=== PATIENT | male | born 1960 | race Two or more races ===

== ENCOUNTER → 2016-08-29 | Outpatient (REF) | payer BC ==
[2016-08-29 13:52] LABS: ALBUMIN 4.2 GM/DL (3.2-5.2); ALKALINE PHOSPHATASE 106 U/L (45-117); ALT/SGPT 48 U/L (12-78); ANION GAP 11 MEQ/L (8-16); AST/SGOT 20 U/L (15-37); BILIRUBIN,TOTAL 0.6 MG/DL (0.2-1.0); BLOOD UREA NITROGEN 21 MG/DL (7-18); CALCIUM LEVEL 8.7 MG/DL (8.5-10.1); CARBON DIOXIDE LEVEL 26 MEQ/L (21-32); CHLORIDE LEVEL 105 MEQ/L (98-107); CHOLESTEROL LEVEL 254 MG/DL (<200); CREATININE FOR GFR 1.11 MG/DL (0.70-1.30); GLOMERULAR FILTRATION RATE > 60.0 (>56); GLUCOSE, FASTING 183 MG/DL (70-105); POTASSIUM SERUM 4.2 MEQ/L (3.5-5.1); SODIUM LEVEL 142 MEQ/L (136-145); TRIGLYCERIDES LEVEL 213 MG/DL (<150)
[2016-08-30 14:04] LABS: HIV SCRN NEGATIVE (NEGATIVE)
[2016-08-30 14:05] LABS: HIV SCRN1 NEGATIVE (NEGATIVE)
[2016-08-30 14:06] LABS: CONTROL LINE INT CTR LINE PRESENT
== END ==
LOC: M SFHCPLAZ 10:33
PROVIDERS: ATTEND Family Medicine
DX: Z00.00 Encounter for general adult medical examination without abnormal findings (principal); E66.9 Obesity, unspecified
CPT/HCPCS: 36415; 80053; 80061; 83036; 86780; 87491; 87591; 87806; G0472

== ENCOUNTER 2016-09-13 03:00 | Emergency (ER) | payer BC ==
--- NOTE | 2016-09-13 04:28 | EDDOCDS ---
Nurse's Notes [facility] Name: Abdias Marina Age: 56 yrs Sex: Male : 1960 Arrival Date: 09/13/2016 Time: 03:00 Bed 12 Private MD: Diagnosis: Abrasion of other part of head Presentation: 09/13 03:07 Presenting complaint: Patient states: bump to chin, mole fell off tonight while washing af2 face. bleeding has gone through 3 rags. Adult Sepsis Screening: The patient does not have new or worsening altered mentation. Patient's respiratory rate is less than 22. Systolic blood pressure is greater than 100. Patient has a qSOFA score of 0- Negative Sepsis Screen. Suicide/Homicide risk assessment- the patient denies having any suicidal and/or homicidal ideations and does not present with any other emotional, behavioral or mental health complaints. Status: Patient is not a service associate or dependent. Transition of care: patient was not received from another setting of care. 03:07 Acuity: ANABELLA Level 4 af2 03:07 Method Of Arrival: Walkin/Carried/Asstd af2 Triage Assessment: 03:09 General: Appears in no apparent distress, Behavior is appropriate for age. Pain: Denies af2 pain. Pt Declines HIV testing. Derm: bleeding to chin controlled with rag. Historical: - Allergies: No known drug Allergies; - Home Meds: 1. lisinopril 5 mg Oral tab once daily - PMHx: Hypertension; - PSHx: achilles tendon; - Social history: Smoking status: Patient states was never smoker of tobacco. No barriers to communication noted, The patient speaks fluent Hungarian. - Family history: Not pertinent. - : The pt / caregiver states he / she is not on anticoagulants. Home medication list is obtained from the patient. - Exposure Risk Screening:: None identified. Screenin:14 Screening information is obtained from the patient. Fall risk: No risks identified. kas2 Assistance ADL's: requires no assistance with activities of daily living. Abuse/DV Screen: The patient / caregiver reports he/she is: not in a situation that causes fear, pain or injury. Nutritional screening: No deficits noted. Advance Directives: Currently, there is no health care proxy. There is no active DNR order. There is no living will. There is no Power of Brickm[employer] Helper. home support is adequate. Assessment: 03:13 General: Appears in no apparent distress, comfortable, well nourished, well groomed, kas2 Behavior is appropriate for age, cooperative. Pain: Denies pain. Neurological: Level of Consciousness is awake, alert, Oriented to person, place, time. Cardiovascular: Rhythm is regular. Respiratory: Airway is patent Respiratory effort is even, unlabored, Respiratory pattern is regular, symmetrical. Derm: Skin is intact, Skin is dry, Skin is pink, warm & dry. Skin temperature is warm. Vital Signs: 03:06 BP 177 / 90 RA Sitting (auto/); Pulse 75; Resp 18 S; Temp 97.3(TE); Pulse Ox 97% on af2 R/A; Weight 108.86 kg (R); Height 6 ft. 0 in. (182.88 cm) (R); Pain 0/10; 04:27 BP 165 / 85; Pulse 72; Resp 18; Temp 98.0(O); Pulse Ox 99% on R/A; Pain 0/10; kas2 03:06 Body Mass Index 32.55 (108.86 kg, 182.88 cm) af2 Vitals: 03:06 Log In Time: September 13, 2016 at 03:03. af2 ED Course: 03:01 Patient visited by Mercedes Lerner Reg. hs2 03:01 Patient moved to Waiting hs2 03:04 Patient moved to Triage 1 af2 03:08 Triage Initiated af2 03:09 Patient visited by Sunshine Uribe RN. af2 03:09 Osiris Coleman RN is Primary Nurse. af2 03:09 Patient moved to 12 af2 03:10 Jason Alberts MD is Attending Physician. br1 03:12 Patient visited by Osiris Coleman RN. kas2 03:19 Patient visited by Jason Alberts MD. br1 03:50 Patient visited by Osiris Coleman RN. kas2 04:10 Patient visited by Jason Alberts MD. br1 04:27 The patient / caregiver is instructed regarding the plan of care and ED course. kas2 04:27 No IV's were initiated during this patient's visit. No procedures done that require kas2 assistance. 04:28 Patient visited by Osiris Coleman RN. kas2 Order Results: There are currently no results for this order. Outcome: 04:12 Discharge ordered by Provider. br1 04:27 Discharge Assessment: patient administered narcotics - no. The following High Risk [facility] Discharge criteria are identified: None. Discharged to home ambulatory, with significant other. Condition: good Condition: stable Condition: improved. No special radiology studies were completed. Property :Personal belongings accompany Pt. 04:28 Patient left the ED. [facility] Signatures: Jason Alberts MD MD br1 Sunshine Uribe RN RN af2 Mercedes Lerner, Reg Reg hs2 Osiris Coleman RN RN kas2 MTDD
--- NOTE | 2016-09-13 04:28 | EDDOCDS ---
Physician Documentation [facility] Name: Abdias Marina Age: 56 yrs Sex: Male : 1960 Arrival Date: 09/13/2016 Time: 03:00 Bed 12 Private MD: Disposition: 09/13/16 04:12 Discharged to Home/Self Care. Impression: Abrasion of other part of head. - Condition is Stable. - Discharge Instructions: Abrasion. - Medication Reconciliation, Local Pharmacy Hours form. - Follow up: Private Physician; When: 1 - 2 days; Reason: Recheck today's complaints. - Problem is new. - Symptoms are resolved. - Notes: You were seen in the ED for an area of persistent bleeding to the chin, which has now resolved with Gelfoam and pressure to the site. Avoid any further irritation to the site. Call your primary doctor to discuss the ED visit and arrange to be seen for follow-up. Return to the ED for any dizziness, lightheadedness, bleeding that does not resolve with pressure or any other concerns. Historical: - Allergies: No known drug Allergies; - Home Meds: 1. lisinopril 5 mg Oral tab once daily - PMHx: Hypertension; - PSHx: achilles tendon; - Social history: Smoking status: Patient states was never smoker of tobacco. No barriers to communication noted, The patient speaks fluent Guatemalan. - Family history: Not pertinent. - : The pt / caregiver states he / she is not on anticoagulants. Home medication list is obtained from the patient. - Exposure Risk Screening:: None identified. Vital Signs: 09/13 03:06 BP 177 / 90 RA Sitting (auto/); Pulse 75; Resp 18 S; Temp 97.3(TE); Pulse Ox 97% on af2 R/A; Weight 108.86 kg / 240 lbs (R); Height 6 ft. 0 in. (182.88 cm) (R); Pain 0/10; 04:27 BP 165 / 85; Pulse 72; Resp 18; Temp 98.0(O); Pulse Ox 99% on R/A; Pain 0/10; kas2 03:06 Body Mass Index 32.55 (108.86 kg, 182.88 cm) af2 MDM: 03:26 Misc. Nursing Order ordered. br1 Signatures: Jason Alberts MD MD br1 Sunshine Uribe,RN RN af2 Osiris Coleman,RN RN kas2 MTDD
--- NOTE | 2016-09-15 05:29 | EDDOCDS ---
[facility]ation [facility] Name: Abdias Marina Age: 56 yrs Sex: Male : 1960 Arrival Date: 09/13/2016 Time: 03:00 Bed 12 Private MD: Disposition: 09/13/16 04:12 Discharged to Home/Self Care. Impression: Abrasion of other part of head. - Condition is Stable. - Discharge Instructions: Abrasion. - Medication Reconciliation, Local Pharmacy Hours form. - Follow up: Private Physician; When: 1 - 2 days; Reason: Recheck today's complaints. - Problem is new. - Symptoms are resolved. - Notes: You were seen in the ED for an area of persistent bleeding to the chin, which has now resolved with Gelfoam and pressure to the site. Avoid any further irritation to the site. Call your primary doctor to discuss the ED visit and arrange to be seen for follow-up. Return to the ED for any dizziness, lightheadedness, bleeding that does not resolve with pressure or any other concerns. Historical: - Allergies: No known drug Allergies; - Home Meds: 1. lisinopril 5 mg Oral tab once daily - PMHx: Hypertension; - PSHx: achilles tendon; - Social history: Smoking status: Patient states was never smoker of tobacco. No barriers to communication noted, The patient speaks fluent Vincentian. - Family history: Not pertinent. - : The pt / caregiver states he / she is not on anticoagulants. Home medication list is obtained from the patient. - Exposure Risk Screening:: None identified. Vital Signs: 09/13 03:06 BP 177 / 90 RA Sitting (auto/); Pulse 75; Resp 18 S; Temp 97.3(TE); Pulse Ox 97% on af2 R/A; Weight 108.86 kg / 240 lbs (R); Height 6 ft. 0 in. (182.88 cm) (R); Pain 0/10; 04:27 BP 165 / 85; Pulse 72; Resp 18; Temp 98.0(O); Pulse Ox 99% on R/A; Pain 0/10; kas2 03:06 Body Mass Index 32.55 (108.86 kg, 182.88 cm) af2 MDM: 03:26 Misc. Nursing Order ordered. br1 05:02 [facility] Payment Agreement was scanned into [employer] and attached to record. hs2 Signatures: Jason Alberts MD MD br1 Sunshine Uribe RN RN af2 Mercedes Lerner, Mark Flores hs2 Osiris Coleman RN RN kas2 The chart was reviewed and I authenticate all verbal orders and agree with the evaluation and treatment provided.Attachments: 05:02 [facility] Payment Agreement hs2 Chart Complete MTDD
--- NOTE | 2016-09-15 05:29 | EDDOCDS ---
Physician Documentation [facility] Name: Abdias Marina Age: 56 yrs Sex: Male : 1960 Arrival Date: 09/13/2016 Time: 03:00 Bed 12 Private MD: Disposition: 09/13/16 04:12 Discharged to Home/Self Care. Impression: Abrasion of other part of head. - Condition is Stable. - Discharge Instructions: Abrasion. - Medication Reconciliation, Local Pharmacy Hours form. - Follow up: Private Physician; When: 1 - 2 days; Reason: Recheck today's complaints. - Problem is new. - Symptoms are resolved. - Notes: You were seen in the ED for an area of persistent bleeding to the chin, which has now resolved with Gelfoam and pressure to the site. Avoid any further irritation to the site. Call your primary doctor to discuss the ED visit and arrange to be seen for follow-up. Return to the ED for any dizziness, lightheadedness, bleeding that does not resolve with pressure or any other concerns. Historical: - Allergies: No known drug Allergies; - Home Meds: 1. lisinopril 5 mg Oral tab once daily - PMHx: Hypertension; - PSHx: achilles tendon; - Social history: Smoking status: Patient states was never smoker of tobacco. No barriers to communication noted, The patient speaks fluent Moldovan. - Family history: Not pertinent. - : The pt / caregiver states he / she is not on anticoagulants. Home medication list is obtained from the patient. - Exposure Risk Screening:: None identified. Vital Signs: 09/13 03:06 BP 177 / 90 RA Sitting (auto/); Pulse 75; Resp 18 S; Temp 97.3(TE); Pulse Ox 97% on af2 R/A; Weight 108.86 kg / 240 lbs (R); Height 6 ft. 0 in. (182.88 cm) (R); Pain 0/10; 04:27 BP 165 / 85; Pulse 72; Resp 18; Temp 98.0(O); Pulse Ox 99% on R/A; Pain 0/10; kas2 03:06 Body Mass Index 32.55 (108.86 kg, 182.88 cm) af2 MDM: 03:26 Misc. Nursing Order ordered. br1 05:02 [facility] Payment Agreement was scanned into [employer] and attached to record. hs2 Signatures: Jason Alberts MD MD br1 Sunshine Uribe RN RN af2 Mercedes Lerner, Mark Flores hs2 Osiris Coleman RN RN kas2 The chart was reviewed and I authenticate all verbal orders and agree with the evaluation and treatment provided.Attachments: 05:02 [facility] Payment Agreement hs2 Chart Complete MTDD
--- NOTE | 2016-09-15 05:29 | EDDOCDS ---
Nurse's Notes [facility] Name: Abdias Marina Age: 56 yrs Sex: Male : 1960 Arrival Date: 09/13/2016 Time: 03:00 Bed 12 Private MD: Diagnosis: Abrasion of other part of head Presentation: 09/13 03:07 Presenting complaint: Patient states: bump to chin, mole fell off tonight while washing af2 face. bleeding has gone through 3 rags. Adult Sepsis Screening: The patient does not have new or worsening altered mentation. Patient's respiratory rate is less than 22. Systolic blood pressure is greater than 100. Patient has a qSOFA score of 0- Negative Sepsis Screen. Suicide/Homicide risk assessment- the patient denies having any suicidal and/or homicidal ideations and does not present with any other emotional, behavioral or mental health complaints. Status: Patient is not a home service consultant or dependent. Transition of care: patient was not received from another setting of care. 03:07 Acuity: ANABELLA Level 4 af2 03:07 Method Of Arrival: Walkin/Carried/Asstd af2 Triage Assessment: 03:09 General: Appears in no apparent distress, Behavior is appropriate for age. Pain: Denies af2 pain. Pt Declines HIV testing. Derm: bleeding to chin controlled with rag. Historical: - Allergies: No known drug Allergies; - Home Meds: 1. lisinopril 5 mg Oral tab once daily - PMHx: Hypertension; - PSHx: achilles tendon; - Social history: Smoking status: Patient states was never smoker of tobacco. No barriers to communication noted, The patient speaks fluent Vietnamese. - Family history: Not pertinent. - : The pt / caregiver states he / she is not on anticoagulants. Home medication list is obtained from the patient. - Exposure Risk Screening:: None identified. Screenin:14 Screening information is obtained from the patient. Fall risk: No risks identified. kas2 Assistance ADL's: requires no assistance with activities of daily living. Abuse/DV Screen: The patient / caregiver reports he/she is: not in a situation that causes fear, pain or injury. Nutritional screening: No deficits noted. Advance Directives: Currently, there is no health care proxy. There is no active DNR order. There is no living will. There is no Power of Assistant Director Of Admissions. home support is adequate. Assessment: 03:13 General: Appears in no apparent distress, comfortable, well nourished, well groomed, kas2 Behavior is appropriate for age, cooperative. Pain: Denies pain. Neurological: Level of Consciousness is awake, alert, Oriented to person, place, time. Cardiovascular: Rhythm is regular. Respiratory: Airway is patent Respiratory effort is even, unlabored, Respiratory pattern is regular, symmetrical. Derm: Skin is intact, Skin is dry, Skin is pink, warm & dry. Skin temperature is warm. Vital Signs: 03:06 BP 177 / 90 RA Sitting (auto/); Pulse 75; Resp 18 S; Temp 97.3(TE); Pulse Ox 97% on af2 R/A; Weight 108.86 kg (R); Height 6 ft. 0 in. (182.88 cm) (R); Pain 0/10; 04:27 BP 165 / 85; Pulse 72; Resp 18; Temp 98.0(O); Pulse Ox 99% on R/A; Pain 0/10; kas2 03:06 Body Mass Index 32.55 (108.86 kg, 182.88 cm) af2 Vitals: 03:06 Log In Time: September 13, 2016 at 03:03. af2 ED Course: 03:01 Patient visited by Mercedes Lerner Reg. hs2 03:01 Patient moved to Waiting hs2 03:04 Patient moved to Triage 1 af2 03:08 Triage Initiated af2 03:09 Patient visited by Sunshine Uribe RN. af2 03:09 Osiris Coleman RN is Primary Nurse. af2 03:09 Patient moved to 12 af2 03:10 Jason Alberts MD is Attending Physician. br1 03:12 Patient visited by Osiris Coleman RN. kas2 03:19 Patient visited by Jason Alberts MD. br1 03:50 Patient visited by Osiris Coleman RN. kas2 04:10 Patient visited by Jason Alberts MD. br1 04:27 The patient / caregiver is instructed regarding the plan of care and ED course. kas2 04:27 No IV's were initiated during this patient's visit. No procedures done that require [facility]2 assistance. 04:28 Patient visited by Osiris Coleman RN. kas2 05:02 [facility] Payment Agreement was scanned into [employer] and attached to record. hs2 Order Results: There are currently no results for this order. Outcome: 04:12 Discharge ordered by Provider. br1 04:27 Discharge Assessment: patient administered narcotics - no. The following High Risk [facility]2 Discharge criteria are identified: None. Discharged to home ambulatory, with significant other. Condition: good Condition: stable Condition: improved. No special radiology studies were completed. Property :Personal belongings accompany Pt. 04:28 Patient left the ED. [facility] Signatures: Jason Alberts MD MD br1 Sunshine Uribe,RN RN af2 Mercedes Lerner, Reg Reg hs2 Osiris ColemanRN RN kas2 Chart Complete MTDD
--- NOTE | 2016-09-15 08:19 | EDDOCDS ---
Nurse's Notes [facility] Name: Abdias Marina Age: 56 yrs Sex: Male : 1960 Arrival Date: 09/13/2016 Time: 03:00 Bed 12 Private MD: Diagnosis: Abrasion of other part of head Presentation: 09/13 03:07 Presenting complaint: Patient states: bump to chin, mole fell off tonight while washing af2 face. bleeding has gone through 3 rags. Adult Sepsis Screening: The patient does not have new or worsening altered mentation. Patient's respiratory rate is less than 22. Systolic blood pressure is greater than 100. Patient has a qSOFA score of 0- Negative Sepsis Screen. Suicide/Homicide risk assessment- the patient denies having any suicidal and/or homicidal ideations and does not present with any other emotional, behavioral or mental health complaints. Status: Patient is not a field service technician or dependent. Transition of care: patient was not received from another setting of care. 03:07 Acuity: ANABELLA Level 4 af2 03:07 Method Of Arrival: Walkin/Carried/Asstd af2 Triage Assessment: 03:09 General: Appears in no apparent distress, Behavior is appropriate for age. Pain: Denies af2 pain. Pt Declines HIV testing. Derm: bleeding to chin controlled with rag. Historical: - Allergies: No known drug Allergies; - Home Meds: 1. lisinopril 5 mg Oral tab once daily - PMHx: Hypertension; - PSHx: achilles tendon; - Social history: Smoking status: Patient states was never smoker of tobacco. No barriers to communication noted, The patient speaks fluent Danish. - Family history: Not pertinent. - : The pt / caregiver states he / she is not on anticoagulants. Home medication list is obtained from the patient. - Exposure Risk Screening:: None identified. Screenin:14 Screening information is obtained from the patient. Fall risk: No risks identified. kas2 Assistance ADL's: requires no assistance with activities of daily living. Abuse/DV Screen: The patient / caregiver reports he/she is: not in a situation that causes fear, pain or injury. Nutritional screening: No deficits noted. Advance Directives: Currently, there is no health care proxy. There is no active DNR order. There is no living will. There is no Power of Data Processor. home support is adequate. Assessment: 03:13 General: Appears in no apparent distress, comfortable, well nourished, well groomed, kas2 Behavior is appropriate for age, cooperative. Pain: Denies pain. Neurological: Level of Consciousness is awake, alert, Oriented to person, place, time. Cardiovascular: Rhythm is regular. Respiratory: Airway is patent Respiratory effort is even, unlabored, Respiratory pattern is regular, symmetrical. Derm: Skin is intact, Skin is dry, Skin is pink, warm & dry. Skin temperature is warm. Vital Signs: 03:06 BP 177 / 90 RA Sitting (auto/); Pulse 75; Resp 18 S; Temp 97.3(TE); Pulse Ox 97% on af2 R/A; Weight 108.86 kg (R); Height 6 ft. 0 in. (182.88 cm) (R); Pain 0/10; 04:27 BP 165 / 85; Pulse 72; Resp 18; Temp 98.0(O); Pulse Ox 99% on R/A; Pain 0/10; kas2 03:06 Body Mass Index 32.55 (108.86 kg, 182.88 cm) af2 Vitals: 03:06 Log In Time: September 13, 2016 at 03:03. af2 ED Course: 03:01 Patient visited by Mercedes Lerner Reg. hs2 03:01 Patient moved to Waiting hs2 03:04 Patient moved to Triage 1 af2 03:08 Triage Initiated af2 03:09 Patient visited by Sunshine Uribe RN. af2 03:09 Osiris Coleman RN is Primary Nurse. af2 03:09 Patient moved to 12 af2 03:10 Jason Alberts MD is Attending Physician. br1 03:12 Patient visited by Osiris Coleman RN. kas2 03:19 Patient visited by Jason Alberts MD. br1 03:50 Patient visited by Osiris Coleman RN. kas2 04:10 Patient visited by Jason Alberts MD. br1 04:27 The patient / caregiver is instructed regarding the plan of care and ED course. kas2 04:27 No IV's were initiated during this patient's visit. No procedures done that require [facility]2 assistance. 04:28 Patient visited by Osiris Coleman RN. kas2 05:02 [facility] Payment Agreement was scanned into [employer] and attached to record. hs2 Order Results: There are currently no results for this order. Outcome: 04:12 Discharge ordered by Provider. br1 04:27 Discharge Assessment: patient administered narcotics - no. The following High Risk [facility]2 Discharge criteria are identified: None. Discharged to home ambulatory, with significant other. Condition: good Condition: stable Condition: improved. No special radiology studies were completed. Property :Personal belongings accompany Pt. 04:28 Patient left the ED. [facility] Signatures: Jason Alberts MD MD br1 Sunshine Uribe,RN RN af2 Mercedes Lerner, Reg Reg hs2 Osiris ColemanRN RN kas2 Chart Complete MTDD
--- NOTE | 2016-09-15 08:19 | EDDOCDS ---
Physician Documentation [facility] Name: Abdias Marina Age: 56 yrs Sex: Male : 1960 Arrival Date: 09/13/2016 Time: 03:00 Bed 12 Private MD: Disposition: 09/13/16 04:12 Discharged to Home/Self Care. Impression: Abrasion of other part of head. - Condition is Stable. - Discharge Instructions: Abrasion. - Medication Reconciliation, Local Pharmacy Hours form. - Follow up: Private Physician; When: 1 - 2 days; Reason: Recheck today's complaints. - Problem is new. - Symptoms are resolved. - Notes: You were seen in the ED for an area of persistent bleeding to the chin, which has now resolved with Gelfoam and pressure to the site. Avoid any further irritation to the site. Call your primary doctor to discuss the ED visit and arrange to be seen for follow-up. Return to the ED for any dizziness, lightheadedness, bleeding that does not resolve with pressure or any other concerns. Historical: - Allergies: No known drug Allergies; - Home Meds: 1. lisinopril 5 mg Oral tab once daily - PMHx: Hypertension; - PSHx: achilles tendon; - Social history: Smoking status: Patient states was never smoker of tobacco. No barriers to communication noted, The patient speaks fluent Lebanese. - Family history: Not pertinent. - : The pt / caregiver states he / she is not on anticoagulants. Home medication list is obtained from the patient. - Exposure Risk Screening:: None identified. Vital Signs: 09/13 03:06 BP 177 / 90 RA Sitting (auto/); Pulse 75; Resp 18 S; Temp 97.3(TE); Pulse Ox 97% on af2 R/A; Weight 108.86 kg / 240 lbs (R); Height 6 ft. 0 in. (182.88 cm) (R); Pain 0/10; 04:27 BP 165 / 85; Pulse 72; Resp 18; Temp 98.0(O); Pulse Ox 99% on R/A; Pain 0/10; kas2 03:06 Body Mass Index 32.55 (108.86 kg, 182.88 cm) af2 MDM: 03:26 Misc. Nursing Order ordered. br1 05:02 [facility] Payment Agreement was scanned into [employer] and attached to record. hs2 Signatures: Jason Alberts MD MD br1 Sunshine Uribe RN RN af2 Mercedes Lerner, Mark Flores hs2 Osiris Coleman RN RN kas2 The chart was reviewed and I authenticate all verbal orders and agree with the evaluation and treatment provided.Attachments: 05:02 [facility] Payment Agreement hs2 Chart Complete MTDD
--- NOTE | 2016-09-15 08:19 | EDDOCDS ---
Physician Documentation [facility] Name: Abdias Marina Age: 56 yrs Sex: Male : 1960 Arrival Date: 09/13/2016 Time: 03:00 Bed 12 Private MD: Disposition: 09/13/16 04:12 Discharged to Home/Self Care. Impression: Abrasion of other part of head. - Condition is Stable. - Discharge Instructions: Abrasion. - Medication Reconciliation, Local Pharmacy Hours form. - Follow up: Private Physician; When: 1 - 2 days; Reason: Recheck today's complaints. - Problem is new. - Symptoms are resolved. - Notes: You were seen in the ED for an area of persistent bleeding to the chin, which has now resolved with Gelfoam and pressure to the site. Avoid any further irritation to the site. Call your primary doctor to discuss the ED visit and arrange to be seen for follow-up. Return to the ED for any dizziness, lightheadedness, bleeding that does not resolve with pressure or any other concerns. Historical: - Allergies: No known drug Allergies; - Home Meds: 1. lisinopril 5 mg Oral tab once daily - PMHx: Hypertension; - PSHx: achilles tendon; - Social history: Smoking status: Patient states was never smoker of tobacco. No barriers to communication noted, The patient speaks fluent Brazilian. - Family history: Not pertinent. - : The pt / caregiver states he / she is not on anticoagulants. Home medication list is obtained from the patient. - Exposure Risk Screening:: None identified. Vital Signs: 09/13 03:06 BP 177 / 90 RA Sitting (auto/); Pulse 75; Resp 18 S; Temp 97.3(TE); Pulse Ox 97% on af2 R/A; Weight 108.86 kg / 240 lbs (R); Height 6 ft. 0 in. (182.88 cm) (R); Pain 0/10; 04:27 BP 165 / 85; Pulse 72; Resp 18; Temp 98.0(O); Pulse Ox 99% on R/A; Pain 0/10; kas2 03:06 Body Mass Index 32.55 (108.86 kg, 182.88 cm) af2 MDM: 03:26 Misc. Nursing Order ordered. br1 05:02 [facility] Payment Agreement was scanned into [employer] and attached to record. hs2 Signatures: Jason Alberts MD MD br1 Sunshine Uribe RN RN af2 Mercedes Lerner, Mark Flores hs2 Osiris Coleman RN RN kas2 The chart was reviewed and I authenticate all verbal orders and agree with the evaluation and treatment provided.Attachments: 05:02 [facility] Payment Agreement hs2 Chart Complete MTDD
== END 2016-09-13 04:28 | disposition home or self-care (01) ==
LOC: M ED 03:00
DX: S00.81XA Abrasion of other part of head, initial encounter (principal); X58.XXXA Exposure to other specified factors, initial encounter; Y92.89 Other specified places as the place of occurrence of the external cause; Y93.89 Activity, other specified; Y99.8 Other external cause status; I10 Essential (primary) hypertension; Z79.899 Other long term (current) drug therapy

== ENCOUNTER → 2016-10-05 | Outpatient (CLI) | payer BC ==
[~2016-10-05] VITALS: Ht 182.9 cm; Wt 113.4 kg
[~2016-10-05] MED LIST: LIDOCAINE 2% INJ 100 MG/5 ML SDV (FOR ANES.) As Ordered ONE; LISI10TA4 PO; NS 1,000 ML IV SCH; PROPOFOL 200 MG/20 ML VIAL As Ordered ONE; TERB250T57 PO
--- NOTE | 2016-10-05 09:58 | ROOR ---
Patient Name: Abdias Marina Procedure Date: 10/05/2016 9:41 AM Date of : 1960 Age: 56 Room: [facility] Gender: Male Note Status: Finalized Procedure: Colonoscopy Indications: Screening for colorectal malignant neoplasm Providers: Stoney JERNIGAN MD Referring MD: Rell Koenig MD Requesting Provider: Medicines: Monitored Anesthesia Care Complications: No immediate complications. Procedure: Pre-Anesthesia Assessment: - The heart rate, respiratory rate, oxygen saturations, blood pressure, adequacy of pulmonary ventilation, and response to care were monitored throughout the procedure. The Colonoscope was introduced through the anus and advanced to the cecum, identified by appendiceal orifice and ileocecal valve. The colonoscopy was performed without difficulty. The patient tolerated the procedure well. The quality of the bowel preparation was good. Findings: The perianal and digital rectal examinations were normal. A diminutive polyp was found in the proximal ascending colon. The polyp was sessile. The polyp was removed with a jumbo cold forceps. Resection and retrieval were complete. The exam was otherwise without abnormality on direct and retroflexion views. (Exam: Complete, Prep: Good or Excellent.) Impression: - One diminutive polyp in the proximal ascending colon, removed with a jumbo cold forceps. Resected and retrieved. - The examination was otherwise normal on direct and retroflexion views. Recommendation: - Await pathology results. - Telephone endoscopist for pathology results in 2 weeks. - If the pathology report reveals adenomatous tissue, then repeat the colonoscopy for surveillance in 5 years. - If the pathology report indicates hyperplastic polyp, then repeat colonoscopy for screening purposes in 10 years. Stoney Jernigan MD Stoney JERNIGAN MD 10/05/2016 9:58:20 AM This report has been signed electronically. Number of Addenda: 0 Note Initiated On: 10/05/2016 9:41 AM Estimated Blood Loss: Estimated blood loss: none.
[2016-10-05 10:40] VITALS: BP 142/83
== END | disposition home or self-care (01) ==
LOC: M OPP 08:44
PROVIDERS: ATTEND Internal Medicine Gastroenterology
DX: Z12.11 Encounter for screening for malignant neoplasm of colon (principal); D12.2 Benign neoplasm of ascending colon; I10 Essential (primary) hypertension; E11.9 Type 2 diabetes mellitus without complications; R06.83 Snoring; Z79.899 Other long term (current) drug therapy; Z79.84 Long term (current) use of oral hypoglycemic drugs

== ENCOUNTER → 2017-01-26 | Outpatient (REF) | payer BC ==
[~2017-01-26] MED LIST changes: -LIDOCAINE 2% INJ 100 MG/5 ML SDV (FOR ANES.) As Ordered ONE; -NS 1,000 ML IV SCH; -PROPOFOL 200 MG/20 ML VIAL As Ordered ONE; +TERB250T12 PO; -TERB250T57 PO
== END ==
LOC: M SFHCPLAZ 07:55
PROVIDERS: ATTEND Family Medicine
DX: E11.9 Type 2 diabetes mellitus without complications (principal); E78.2 Mixed hyperlipidemia; R35.1 Nocturia; R68.82 Decreased libido
CPT/HCPCS: 36415; 80061; 83036; 84402; 84403; G0103

== ENCOUNTER → 2017-08-14 | Outpatient (CLI) | payer BC | LOC: M RAD 17:32 | DX: R06.02 Shortness of breath (principal) | CPT/HCPCS: 71046 ==

== ENCOUNTER → 2017-08-14 | Outpatient (REF) | payer BC | LOC: M SFHCPLAZ 17:31 | DX: R05 Cough (principal) | CPT/HCPCS: 87633 ==

== ENCOUNTER → 2018-06-07 | Outpatient (REF) | payer BC ==
[2018-06-07 11:10] LABS: ESTIMATED AVERAGE GLUCOSE 301 MG/DL (60-110); HEMOGLOBIN A1c 12.1 %
[2018-06-07 11:16] LABS: ANION GAP 10 MEQ/L (8-16); BLOOD UREA NITROGEN 15 MG/DL (7-18); CALCIUM LEVEL 8.4 MG/DL (8.5-10.1); CARBON DIOXIDE LEVEL 27 MEQ/L (21-32); CHLORIDE LEVEL 102 MEQ/L (98-107); CHOLESTEROL LEVEL 261 MG/DL (<200); CHOLESTEROL RISK RATIO 5.553 (<5); CREATININE FOR GFR 1.02 MG/DL (0.70-1.30); FREE T4 1.05 NG/DL (0.76-1.46); GLOMERULAR FILTRATION RATE > 60.0 (>56); GLUCOSE, FASTING 353 MG/DL (70-100); HDL CHOLESTEROL 47 MG/DL (>40); LDL CHOLESTEROL 162 MG/DL (<100); NON-HDL-C 214 MG/DL; POTASSIUM SERUM 3.8 MEQ/L (3.5-5.1); SODIUM LEVEL 139 MEQ/L (136-145); TESTOSTERONE 382 NG/DL (241-827); TOTAL 25(OH) VITAMIN D 28.2 NG/ML (30.0-100.0); TRIGLYCERIDES LEVEL 258 MG/DL (<150)
[2018-06-07 11:34] LABS: MALB URINE SIEMENS 44.5 MG/L; MAU/CREAT RATIO 34.4 MCG/MG (0.0-30.0)
== END ==
LOC: M SFHCPLAZ 08:13
DX: R53.82 Chronic fatigue, unspecified (principal); E11.9 Type 2 diabetes mellitus without complications; E78.2 Mixed hyperlipidemia
CPT/HCPCS: 84403

== ENCOUNTER → 2018-12-20 | Outpatient (REF) | payer OTHER ==
[~2018-12-20] MED LIST changes: +HYDR-3715 PO; +METF-723 PO; +TRES1INJ2 SC
[2018-12-20 12:15] LABS: BLOOD UREA NITROGEN 24 MG/DL (7-18); CALCIUM LEVEL 8.9 MG/DL (8.5-10.1); CARBON DIOXIDE LEVEL 28 MEQ/L (21-32); CHLORIDE LEVEL 107 MEQ/L (98-107); CHOLESTEROL LEVEL 155 MG/DL (<200); CHOLESTEROL RISK RATIO 3.039 (<5); CREATININE FOR GFR 1.21 MG/DL (0.70-1.30); GLOMERULAR FILTRATION RATE > 60.0 (>56); GLUCOSE, FASTING 133 MG/DL (70-100); HDL CHOLESTEROL 51 MG/DL (>40); LDL CHOLESTEROL 79 MG/DL (<100); NON-HDL-C 104 MG/DL; POTASSIUM SERUM 4.7 MEQ/L (3.5-5.1); SODIUM LEVEL 142 MEQ/L (136-145); TRIGLYCERIDES LEVEL 124 MG/DL (<150)
[2018-12-20 12:39] LABS: HEMOGLOBIN A1c 6.9 %
[2018-12-20 12:45] LABS: MALB URINE SIEMENS 17.1 MG/L; MAU/CREAT RATIO 7.9 MCG/MG (0.0-30.0)
== END ==
LOC: M SFHCPLAZ 09:42
PROVIDERS: ATTEND Family Medicine
DX: E11.65 Type 2 diabetes mellitus with hyperglycemia (principal); E78.2 Mixed hyperlipidemia; I10 Essential (primary) hypertension

== ENCOUNTER → 2019-02-11 | Outpatient (REF) | payer OTHER | LOC: M SFHCPLAZ 15:29 | PROVIDERS: ATTEND Nurse Practitioner Adult Health | DX: J02.9 Acute pharyngitis, unspecified (principal) ==

== ENCOUNTER → 2019-05-02 | Outpatient (REF) | payer OTHER ==
[2019-05-02 14:30] LABS: BLOOD UREA NITROGEN 15 MG/DL (7-18); CALCIUM LEVEL 8.9 MG/DL (8.5-10.1); CARBON DIOXIDE LEVEL 28 MEQ/L (21-32); CHLORIDE LEVEL 104 MEQ/L (98-107); CHOLESTEROL LEVEL 160 MG/DL (<200); CHOLESTEROL RISK RATIO 2.857 (<5); CREATININE FOR GFR 1.06 MG/DL (0.70-1.30); GLOMERULAR FILTRATION RATE > 60.0 (>56); GLUCOSE, FASTING 224 MG/DL (70-100); HDL CHOLESTEROL 56 MG/DL (>40); IRON (FE) 107 UG/DL (65-175); LDL CHOLESTEROL 64 MG/DL (<100); NON-HDL-C 104 MG/DL; POTASSIUM SERUM 4.6 MEQ/L (3.5-5.1); SODIUM LEVEL 139 MEQ/L (136-145); TRIGLYCERIDES LEVEL 202 MG/DL (<150)
== END ==
LOC: M SFHCPLAZ 12:53
PROVIDERS: ATTEND Family Medicine
DX: G25.81 Restless legs syndrome (principal); E11.9 Type 2 diabetes mellitus without complications; E78.2 Mixed hyperlipidemia

== ENCOUNTER → 2019-07-31 | Outpatient (REF) | payer OTHER ==
[2019-07-31 16:42] LABS: BASO # 0.1 10^3/uL (0.0-0.2); BASO % 0.8 % (0.0-1.0); EOS # 0.6 10^3/uL (0.0-0.5); EOS % 7.1 % (0.0-3.0); HEMATOCRIT 47.7 % (42.0-52.0); HEMOGLOBIN 15.4 g/dl (13.5-17.5); LYMPH # 1.9 10^3/uL (1.5-5.0); MEAN CORPUSCULAR HEMOGLOBIN 27.8 pg (27.0-33.0); MEAN CORPUSCULAR HGB CONC 32.3 g/dl (32.0-36.5); MEAN CORPUSCULAR VOLUME 86.1 fl (80.0-96.0); MONO # 0.5 10^3/uL (0.0-0.8); MONO % 6.1 % (0.0-5.0); NEUTROPHILS # 5.4 10^3/uL (1.5-8.5); NEUTROPHILS % 63.1 % (36.0-66.0); PLATELET COUNT, AUTOMATED 219 10^3/uL (150-450); RED BLOOD COUNT 5.54 10^6/uL (4.30-6.10); WHITE BLOOD COUNT 8.6 10^3/uL (4.0-10.0)
[2019-07-31 17:04] LABS: HEMOGLOBIN A1c 9.7 %
[2019-07-31 17:09] LABS: BLOOD UREA NITROGEN 19 MG/DL (7-18); CALCIUM LEVEL 9.2 MG/DL (8.5-10.1); CARBON DIOXIDE LEVEL 27 MEQ/L (21-32); CHLORIDE LEVEL 104 MEQ/L (98-107); CHOLESTEROL LEVEL 138 MG/DL (<200); CHOLESTEROL RISK RATIO 2.509 (<5); CREATININE FOR GFR 1.14 MG/DL (0.70-1.30); GLOMERULAR FILTRATION RATE > 60.0 (>56); GLUCOSE, FASTING 214 MG/DL (70-100); HDL CHOLESTEROL 55 MG/DL (>40); LDL CHOLESTEROL 51 MG/DL (<100); NON-HDL-C 83 MG/DL; POTASSIUM SERUM 4.5 MEQ/L (3.5-5.1); SODIUM LEVEL 139 MEQ/L (136-145); TRIGLYCERIDES LEVEL 158 MG/DL (<150)
[2019-07-31 17:12] LABS: CREATININE, URINE 64.4 MG/DL; MALB URINE SIEMENS 12.9 MG/L
[2019-07-31 17:17] LABS: VITAMIN B12 LEVEL 842 PG/ML (247-911)
== END ==
LOC: M SFHCLERA 11:30
PROVIDERS: ATTEND Family Medicine
DX: E11.65 Type 2 diabetes mellitus with hyperglycemia (principal); G25.81 Restless legs syndrome

== ENCOUNTER 2020-07-22 16:12 | Emergency (ER) | payer OTHER ==
[~2020-07-22] VITALS: Ht 182.9 cm; Wt 106.7 kg
[2020-07-22] MEDS ORDERED: LISI10TA4 PO (16:21)
[2020-07-22] MEDS ORDERED: ATOR40TA75 PO (16:21)
[2020-07-22 16:40] VITALS: BP 143/95
[2020-07-22] MEDS ORDERED: LEVOTAB10 PO (17:13)
[2020-07-22] MEDS ORDERED: BASA100I SC (17:13)
[2020-07-22] MEDS ORDERED: ACETAMINOPHEN 325 MG TAB PO ONE (17:45)
== END 2020-07-22 18:24 | disposition home or self-care (01) ==
LOC: M ED 16:12
DX: U07.1 COVID-19 (principal); E11.9 Type 2 diabetes mellitus without complications; I10 Essential (primary) hypertension; E78.9 Disorder of lipoprotein metabolism, unspecified; Z79.899 Other long term (current) drug therapy; Z79.4 Long term (current) use of insulin

== ENCOUNTER 2020-07-22 18:42 | Outpatient (CLI) | payer OTHER ==
[2020-07-22] VITALS (8 sets, daily range): BP systolic 124–155; BP diastolic 68–90
[~2020-07-22] VITALS: Ht 182.9 cm; Wt 107.8 kg
--- NOTE | 2020-07-22 17:51 | CR ---
CONSULTATION DATE: 07/22/2020 PRIMARY CARE PROVIDER: Khoa Landrum DO REQUESTED BY: Briana Cueto MD REASON FOR CONSULTATION: This is an outpatient evaluation. Abdias Marina is being admitted for monoclonal antibody therapy. He tested positive for COVID at Urgent Care today. 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 He is at increased risk for progression of COVID disease due to his diabetes, hypertension, and age greater than 55. ALLERGIES: None known. His past medical history, social history, family history were all reviewed from his office chart and are available in the electronic record. REVIEW OF SYSTEMS: No hemoptysis. No purulent sputum production. No neck stiffness. PHYSICAL EXAM: Vital signs: Per flow sheet. He is not hypoxemic on room air. HEENT: Unremarkable. Lungs: Clear. Heart: Regular rate and rhythm. Abdomen: Soft, nontender. Extremities: No peripheral edema. No rash. IMPRESSION: COVID with increased risk of progression. PLAN: About discussion about monoclonal antibody therapy and emergency use authorization, review of risks and benefits, explanation of potential for unknown adverse consequences of a medication authorized under emergency use, he agreed to initiate bamlanivimab therapy per ____ protocol. He will be discharged after the infusion.
[~2020-07-22 18:42] MED LIST changes: +ALBUTEROL 90 MCG/ACT 8GM HFA INHALER INH PRN; +ALBUTEROL SULFATE 2.5 MG/0.5 ML INH NEB SOLN INH PRN; +ATOR40TA75 PO; +BASA100I SC; +EPINEPHrine INJ 1 MG/ML 1ML AMP IM PRN; +LEVOTAB10 PO; +NS 1,000 ML IV SCH; +diphenhydrAMINE 50MG/ML VIAL (J1200) IV PRN; +methylPREDNISolone 125MG 2ML VIAL IV PRN
[2020-07-22] MEDS ORDERED: BAMLANIVIMAB 700 MG in NS 180 ML IV ONE (19:00)
== END 2020-07-22 22:07 | disposition home or self-care (01) ==
LOC: M 4MAIN 18:42 → M OPCLI4 18:42
PROVIDERS: ATTEND Family Medicine
DX: U07.1 COVID-19 (principal)
CPT/HCPCS: J1200; M0239

== ENCOUNTER → 2020-08-04 | Outpatient (REF) | payer OTHER ==
[~2020-08-04] MED LIST changes: -ALBUTEROL 90 MCG/ACT 8GM HFA INHALER INH PRN; -ALBUTEROL SULFATE 2.5 MG/0.5 ML INH NEB SOLN INH PRN; -EPINEPHrine INJ 1 MG/ML 1ML AMP IM PRN; -NS 1,000 ML IV SCH; -diphenhydrAMINE 50MG/ML VIAL (J1200) IV PRN; -methylPREDNISolone 125MG 2ML VIAL IV PRN
[2020-08-04 14:15] LABS: BASO # 0.1 10^3/uL (0.0-0.2); BASO % 0.7 % (0.0-1.0); EOS # 0.4 10^3/uL (0.0-0.5); EOS % 4.8 % (0.0-3.0); HEMATOCRIT 44.2 % (42.0-52.0); HEMOGLOBIN 14.6 g/dl (13.5-17.5); LYMPH # 1.6 10^3/uL (1.5-5.0); LYMPH % 19.9 % (24.0-44.0); MEAN CORPUSCULAR HEMOGLOBIN 28.2 pg (27.0-33.0); MEAN CORPUSCULAR VOLUME 85.5 fl (80.0-96.0); MONO # 0.5 10^3/uL (0.0-0.8); MONO % 6.6 % (0.0-5.0); NEUTROPHILS # 5.4 10^3/uL (1.5-8.5); NEUTROPHILS % 66.6 % (36.0-66.0); PLATELET COUNT, AUTOMATED 233 10^3/uL (150-450); RED BLOOD COUNT 5.17 10^6/uL (4.30-6.10); WHITE BLOOD COUNT 8.1 10^3/uL (4.0-10.0)
[2020-08-04 14:41] LABS: ERYTHROCYTE SEDIMENTATION RATE 5 mm/hr (0-20)
[2020-08-04 14:58] LABS: ALBUMIN 4.1 GM/DL (3.2-5.2); ALT/SGPT 41 U/L (12-78); BILIRUBIN,TOTAL 0.5 MG/DL (0.2-1.0); BLOOD UREA NITROGEN 18 MG/DL (7-18); CALCIUM LEVEL 8.9 MG/DL (8.5-10.1); CARBON DIOXIDE LEVEL 29 MEQ/L (21-32); CHLORIDE LEVEL 107 MEQ/L (98-107); CHOLESTEROL LEVEL 149 MG/DL (<200); CREATININE FOR GFR 1.03 MG/DL (0.70-1.30); GLOMERULAR FILTRATION RATE > 60.0 (>56); GLUCOSE, FASTING 217 MG/DL (70-100); HDL CHOLESTEROL 50 MG/DL (>40); LDL CHOLESTEROL 64 MG/DL (<100); NON-HDL-C 99 MG/DL; POTASSIUM SERUM 4.7 MEQ/L (3.5-5.1); SODIUM LEVEL 140 MEQ/L (136-145); TOTAL PROTEIN 6.8 GM/DL (6.4-8.2); TRIGLYCERIDES LEVEL 176 MG/DL (<150)
[2020-08-04 15:38] LABS: HEMOGLOBIN A1c 10.2 %
[2020-08-04 16:50] LABS: MALB URINE SIEMENS 50.4 MG/L; MAU/CREAT RATIO 21.5 MCG/MG (0.0-30.0)
[2020-08-05 21:10] LABS: TESTOSTERONE FREE (DIRECT) 11.7 pg/mL (7.2-24.0)
== END ==
LOC: M SFHCLERA 11:36
PROVIDERS: ATTEND Family Medicine
DX: R53.83 Other fatigue (principal); E11.65 Type 2 diabetes mellitus with hyperglycemia; R53.82 Chronic fatigue, unspecified

== ENCOUNTER → 2021-02-14 | Outpatient (CLI) | payer OTHER ==
[~2021-02-14] MED LIST changes: +LISI10TA22 PO; -LISI10TA4 PO
[2021-02-14 14:53] LABS: BLOOD UREA NITROGEN 16 MG/DL (7-18); CALCIUM LEVEL 8.6 MG/DL (8.5-10.1); CARBON DIOXIDE LEVEL 28 MEQ/L (21-32); CHLORIDE LEVEL 107 MEQ/L (98-107); CHOLESTEROL LEVEL 190 MG/DL (<200); CHOLESTEROL RISK RATIO 4.042 (<5); GLOMERULAR FILTRATION RATE > 60.0 (>56); GLUCOSE, FASTING 245 MG/DL (70-100); HDL CHOLESTEROL 47 MG/DL (>40); LDL CHOLESTEROL 91 MG/DL (<100); NON-HDL-C 143 MG/DL; POTASSIUM SERUM 4.1 MEQ/L (3.5-5.1); SODIUM LEVEL 140 MEQ/L (136-145); TRIGLYCERIDES LEVEL 261 MG/DL (<150)
[2021-02-14 15:18] LABS: HEMOGLOBIN A1c 10.7 %
== END ==
LOC: M PLALAB 09:57
PROVIDERS: ATTEND Family Medicine
DX: E11.65 Type 2 diabetes mellitus with hyperglycemia (principal); E78.2 Mixed hyperlipidemia

== ENCOUNTER → 2021-05-19 | Outpatient (CLI) | payer OTHER ==
[~2021-05-19] MED LIST changes: -TERB250T12 PO; +TERB250T91 PO
[2021-05-19 16:35] LABS: HEMOGLOBIN A1c 9.9 %
[2021-05-19 17:09] LABS: BLOOD UREA NITROGEN 18 MG/DL (7-18); CALCIUM LEVEL 9.4 MG/DL (8.8-10.2); CARBON DIOXIDE LEVEL 29 MEQ/L (21-32); CHLORIDE LEVEL 107 MEQ/L (98-107); CREATININE FOR GFR 0.99 MG/DL (0.70-1.30); GLOMERULAR FILTRATION RATE > 60.0 (>49); GLUCOSE, FASTING 213 MG/DL (70-100); POTASSIUM SERUM 5.1 MEQ/L (3.5-5.1); SODIUM LEVEL 142 MEQ/L (136-145)
[2021-05-19 17:14] LABS: MALB URINE SIEMENS 56.6 MG/L; MAU/CREAT RATIO 25.6 MCG/MG (0.0-30.0)
== END ==
LOC: M PLALAB 11:37
PROVIDERS: ATTEND Family Medicine
DX: E11.65 Type 2 diabetes mellitus with hyperglycemia (principal)

== ENCOUNTER → 2021-09-15 | Outpatient (CLI) | payer OTHER ==
[2021-09-15 17:29] LABS: BLOOD UREA NITROGEN 14 MG/DL (7-18); CALCIUM LEVEL 9.3 MG/DL (8.8-10.2); CARBON DIOXIDE LEVEL 27 MEQ/L (21-32); CHLORIDE LEVEL 100 MEQ/L (98-107); CREATININE FOR GFR 1.06 MG/DL (0.70-1.30); GLOMERULAR FILTRATION RATE > 60.0 (>49); GLUCOSE, FASTING 264 MG/DL (70-100); POTASSIUM SERUM 4.3 MEQ/L (3.5-5.1); SODIUM LEVEL 135 MEQ/L (136-145)
[2021-09-15 17:37] LABS: CREATININE, URINE 82.1 MG/DL; MALB URINE SIEMENS 32.2 MG/L; MAU/CREAT RATIO 39.2 MCG/MG (0.0-30.0)
[2021-09-15 17:53] LABS: HEMOGLOBIN A1c 11.1 %
== END ==
LOC: M PLALAB 15:20
PROVIDERS: ATTEND Family Medicine
DX: E11.65 Type 2 diabetes mellitus with hyperglycemia (principal)

== ENCOUNTER → 2021-11-28 | Outpatient (REF) | payer OTHER | LOC: M SFHCDERM 13:56 | PROVIDERS: ATTEND Nurse Practitioner Family | DX: D23.61 Other benign neoplasm of skin of right upper limb, including shoulder (principal); L82.1 Other seborrheic keratosis; D48.9 Neoplasm of uncertain behavior, unspecified ==

== ENCOUNTER → 2021-12-20 | Outpatient (CLI) | payer OTHER ==
[2021-12-20 17:26] LABS: HEMOGLOBIN A1c 7.9 %
[2021-12-20 17:36] LABS: BLOOD UREA NITROGEN 19 MG/DL (7-18); CALCIUM LEVEL 9.5 MG/DL (8.8-10.2); CARBON DIOXIDE LEVEL 30 MEQ/L (21-32); CHLORIDE LEVEL 108 MEQ/L (98-107); CREATININE FOR GFR 1.14 MG/DL (0.70-1.30); GLOMERULAR FILTRATION RATE > 60.0 (>49); GLUCOSE, FASTING 222 MG/DL (70-100); POTASSIUM SERUM 4.6 MEQ/L (3.5-5.1); SODIUM LEVEL 142 MEQ/L (136-145)
[2021-12-20 17:47] LABS: CREATININE, URINE 57.4 MG/DL; MALB URINE SIEMENS 9.3 MG/L; MAU/CREAT RATIO 16.2 MCG/MG (0.0-30.0)
== END ==
LOC: M PLALAB 14:17
PROVIDERS: ATTEND Family Medicine
DX: E11.65 Type 2 diabetes mellitus with hyperglycemia (principal)

== ENCOUNTER → 2022-03-28 | Outpatient (CLI) | payer OTHER ==
[2022-03-28 15:49] LABS: BASO # 0.1 10^3/uL (0.0-0.2); BASO % 0.6 % (0.0-1.0); EOS # 0.3 10^3/uL (0.0-0.5); EOS % 3.9 % (0.0-3.0); HEMATOCRIT 47.9 % (42.0-52.0); HEMOGLOBIN 15.7 g/dl (13.5-17.5); LYMPH # 1.5 10^3/uL (1.5-5.0); LYMPH % 18.3 % (24.0-44.0); MEAN CORPUSCULAR HEMOGLOBIN 27.5 pg (27.0-33.0); MEAN CORPUSCULAR HGB CONC 32.8 g/dl (32.0-36.5); MEAN CORPUSCULAR VOLUME 83.9 fl (80.0-96.0); MONO # 0.4 10^3/uL (0.0-0.8); MONO % 5.5 % (2.0-8.0); NEUTROPHILS # 5.6 10^3/uL (1.5-8.5); NEUTROPHILS % 70.6 % (36.0-66.0); PLATELET COUNT, AUTOMATED 216 10^3/uL (150-450); RED BLOOD COUNT 5.71 10^6/uL (4.30-6.10)
[2022-03-28 16:33] LABS: THYROID STIMULATING HORMONE 1.87 uIU/ML (0.358-3.740)
[2022-03-28 17:09] LABS: HEMOGLOBIN A1c 8.5 %
[2022-03-28 17:38] LABS: FOLATE 17.9 NG/ML (>5.4)
[2022-03-30 18:08] LABS: TESTOSTERONE FREE (DIRECT) 6.8 pg/mL (6.6-18.1)
== END ==
LOC: M PLALAB 13:25
PROVIDERS: ATTEND Family Medicine
DX: E11.65 Type 2 diabetes mellitus with hyperglycemia (principal); R53.83 Other fatigue; E78.2 Mixed hyperlipidemia

== ENCOUNTER → 2024-08-18 | Outpatient (CLI) | payer OTHER ==
[2024-08-18 15:58] LABS: HEMOGLOBIN A1c 9.1 % (4.0-6.0)
[2024-08-18 16:09] LABS: ALBUMIN 4.3 G/DL (3.2-5.2); ALKALINE PHOSPHATASE 84 U/L (40-129); ALT/SGPT 27 U/L (7.0-40); AST/SGOT 16 U/L (<34); BILIRUBIN,TOTAL 0.8 MG/DL (0.3-1.2); BLOOD UREA NITROGEN 18 MG/DL (9-23); CALCIUM LEVEL 8.8 MG/DL (8.3-10.6); CARBON DIOXIDE LEVEL 24 MMOL/L (20-31); CHLORIDE LEVEL 104 MMOL/L (98-107); CHOLESTEROL LEVEL 176 MG/DL (<200); CHOLESTEROL RISK RATIO 2.64 (<5); CREATININE FOR GFR 0.87 MG/DL (0.70-1.30); GLOMERULAR FILTRATION RATE > 60.0 (>49); GLUCOSE, FASTING 149 MG/DL (74-106); HDL CHOLESTEROL 66.5 MG/DL (>40); LDL CHOLESTEROL 81.5 MG/DL (<100); NON-HDL-C 109.5 MG/DL; POTASSIUM SERUM 4.2 MMOL/L (3.5-5.1); SODIUM LEVEL 142 MMOL/L (136-145); TOTAL PROTEIN 7.2 G/DL (5.7-8.2); TRIGLYCERIDES LEVEL 140 MG/DL (<150)
[2024-08-18 16:16] LABS: CREATININE, URINE 60.2 MG/DL; MAU/CREAT RATIO 58.1 MCG/MG (0.0-30.0)
== END ==
LOC: M PLALAB 12:41
PROVIDERS: ATTEND Family Medicine
DX: E11.65 Type 2 diabetes mellitus with hyperglycemia (principal); E78.2 Mixed hyperlipidemia

== ENCOUNTER 2025-04-24 07:35 | Day surgery (SDC) | payer OTHER ==
[~2025-04-24] VITALS: Ht 182.9 cm; Wt 100.7 kg
[~2025-04-24 07:35] MED LIST changes: +JARD1TAB PO; +LEXA1TAB PO; +LOSA25TA13 PO; +METF-1201 PO; -METF-723 PO; +STEG15TA PO; +TRAZ-252 PO
[2025-04-24] MEDS ORDERED: GLYCOPYRROLATE INJ 0.2 MG/ML 2 ML VIAL As Ordered ONE (08:36)
[2025-04-24] MEDS ORDERED: LIDOCAINE 2% 100 MG/5 ML SDV (FOR ANES.) As Ordered ONE (08:36)
[2025-04-24 09:08] VITALS: TEMP 98
[2025-04-24 09:23] VITALS: BP 138/77; O2SAT 97
== END 2025-04-24 09:29 | disposition home or self-care (01) ==
LOC: M OPP 07:35
PROVIDERS: ATTEND Internal Medicine Gastroenterology
DX: D12.5 Benign neoplasm of sigmoid colon (principal); D12.2 Benign neoplasm of ascending colon; K57.30 Diverticulosis of large intestine without perforation or abscess without bleeding; K64.8 Other hemorrhoids; Z86.0100 Personal history of colon polyps, unspecified; Z79.4 Long term (current) use of insulin; Z79.84 Long term (current) use of oral hypoglycemic drugs; Z79.899 Other long term (current) drug therapy
CPT/HCPCS: 45385; 88305; J1596